=== PATIENT | male | born 1950 | race Asian ===

== ENCOUNTER → 2016-08-15 | Outpatient (CLI) | payer OTHER | END | disposition home or self-care (01) | LOC: RADPV 12:39 | PROVIDERS: ATTEND Internal Medicine | DX: J98.11 Atelectasis (principal); R91.8 Other nonspecific abnormal finding of lung field | CPT/HCPCS: 71020 ==

== ENCOUNTER 2016-08-25 12:43 | Emergency (ER) | payer OTHER ==
[~2016-08-25] VITALS: Ht 162.6 cm; Wt 68.2 kg
[2016-08-25 13:17] VITALS: BP 153/62
[2016-08-25] MEDS ORDERED: ALLO100T PO (13:26)
[2016-08-25] MEDS ORDERED: VALS40TA10 PO (13:26)
[2016-08-25] MEDS ORDERED: GLIP10TA9 PO (13:26)
[2016-08-25] MEDS ORDERED: ALBU8.5H PUFF (13:26)
[2016-08-25] MEDS ORDERED: LINA5TAB PO (13:26)
[2016-08-25] MEDS ORDERED: ATEN25 PO (13:26)
[2016-08-25] MEDS ORDERED: SIMV20TA6 PO (13:26)
[2016-08-25 13:27] LABS: GLUCOSE,POINT OF CARE 130 MG/DL (70-110)
[2016-08-25] MEDS ORDERED: IBUPROFEN 600 MG TABLET PO ONE (13:45)
== END 2016-08-25 12:53 | disposition home or self-care (01) ==
LOC: EMS 12:45
DX: B02.9 Zoster without complications (principal); E11.9 Type 2 diabetes mellitus without complications; I10 Essential (primary) hypertension; E78.00 Pure hypercholesterolemia, unspecified
CPT/HCPCS: 82962; 99283

== ENCOUNTER → 2016-08-30 | Outpatient (CLI) | payer OTHER ==
[~2016-08-30] MED LIST: ALBU8.5H PUFF; ALLO100T PO; ATEN25 PO; GLIP10TA9 PO; IOVERSOL 320 MG/ML 100 ML VIAL ONE; LINA5TAB PO; SIMV20TA6 PO; SODIUM CHLORIDE 0.9% 100 ML ONE; VALS40TA10 PO
== END | disposition home or self-care (01) ==
LOC: RADMN 08:45
PROVIDERS: ATTEND Internal Medicine
DX: R91.8 Other nonspecific abnormal finding of lung field (principal)
CPT/HCPCS: 71260; J7050; Q9967

== ENCOUNTER 2017-02-07 12:53 | Emergency (ER) | payer OTHER ==
[~2017-02-07] VITALS: Ht 165.1 cm; Wt 63.0 kg
[~2017-02-07 12:53] MED LIST changes: -ALBU8.5H PUFF; +ALBU8.5H8 PUFF; -ATEN25 PO; +ATEN25TA PO; -IOVERSOL 320 MG/ML 100 ML VIAL ONE; -SODIUM CHLORIDE 0.9% 100 ML ONE
[2017-02-07] MEDS ORDERED: ASPI81 PO (13:04)
[2017-02-07 13:08] LABS: GLUCOSE,POINT OF CARE 263 MG/DL (70-110)
[2017-02-07 13:13] VITALS: BP 155/80
[2017-02-07] MEDS ORDERED: KETOROLAC TROMETHAMINE 60 MG/2 ML VIAL IM ONE (14:00)
[2017-02-07] MEDS ORDERED: COLCHICINE 0.6 MG TABLET PO ONE (14:00)
== END 2017-02-07 14:27 | disposition home or self-care (01) ==
LOC: EMS 12:53
DX: M10.9 Gout, unspecified (principal); E11.9 Type 2 diabetes mellitus without complications; I10 Essential (primary) hypertension; E78.00 Pure hypercholesterolemia, unspecified
CPT/HCPCS: 82962; 96372; 99283; J1885

== ENCOUNTER → 2017-04-15 | Outpatient (CLI) | payer OTHER ==
[~2017-04-15] MED LIST changes: +ASPI81 PO; +ISON300 PO; +PYRI50 PO; +RIFA300 PO
== END | disposition home or self-care (01) ==
LOC: RADPV 14:45
PROVIDERS: ATTEND Internal Medicine
DX: M17.0 Bilateral primary osteoarthritis of knee (principal); M25.462 Effusion, left knee; M25.461 Effusion, right knee

== ENCOUNTER 2017-04-18 13:51 | Emergency (ER) | payer OTHER ==
[~2017-04-18] VITALS: Ht 162.6 cm; Wt 59.0 kg
[~2017-04-18 13:51] MED LIST changes: -ISON300 PO; -PYRI50 PO; -RIFA300 PO
[2017-04-18 14:50] VITALS: BP 138/69
[2017-04-18] MEDS ORDERED: PYRI50 PO (15:19)
[2017-04-18] MEDS ORDERED: ISON300 PO (15:22)
[2017-04-18] MEDS ORDERED: LINA5TAB PO (15:22)
[2017-04-18] MEDS ORDERED: RIFA300 PO (15:22)
[2017-04-18 15:32] LABS: GLUCOSE,POINT OF CARE 347 MG/DL (70-110)
== END 2017-04-18 18:39 | disposition home or self-care (01) ==
LOC: EMS 13:51
DX: M25.461 Effusion, right knee (principal); M25.562 Pain in left knee; I10 Essential (primary) hypertension; E11.9 Type 2 diabetes mellitus without complications; E78.00 Pure hypercholesterolemia, unspecified
CPT/HCPCS: 82962; 99283